=== PATIENT | male | born 1970 | race Two or more races ===

== ENCOUNTER 2024-10-25 23:44 | Emergency (ER) | payer MEDICAID, SELFPAY ==
[2024-10-25 23:45] VITALS: BMI 24.4
[2024-10-26 00:04] VITALS: BP 145/82; PULSE 73; RESP 20; TEMP 36.8; O2SAT 97
--- NOTE | 2024-10-26 00:10 | XR_ITS ---
Examination: Shoulder,left, 3 views Technique: Shoulder AP internal rotation, AP external rotation, Y view shoulder, 3 views Exam date and time :October 26, 2024 0014 hrs. Indications: Left shoulder pain beginning 3 days ago. Findings: No shoulder fracture or dislocation Moderate narrowing glenohumeral joint No calcific tendinitis Impression: Moderate narrowing glenohumeral joint
--- NOTE | 2024-10-26 00:11 | PD.EDRME ---
Rapid Medical Screening Exam E Arrival date/time: 10/25/24 23:44 54-year-old male presents emergency department complaining of left shoulder pain for 3 days. Patient denies any recent injury or fall. Chief Complaint: Extremity Problem,Nontraumatic Time Seen by Provider: 10/26/24 00:08 Vital signs: Vital Signs Temperature 98.2 F 10/26/24 00:04 Pulse Rate 73 10/26/24 00:04 Respiratory Rate 20 10/26/24 00:04 Blood Pressure 145/82 H 10/26/24 00:04 Pulse Oximetry (%) 97 10/26/24 00:04 Oxygen Delivery Method Room Air 10/26/24 00:04 Vital signs reviewed by provider: Yes
[2024-10-26] MEDS: CYCLObenzaPRINE 5 MG TABLET PO (00:28)
[2024-10-26] MEDS: KETOROLAC INJ 60 MG/2 ML VIAL 30 MG IM (00:30)
--- NOTE | 2024-10-26 01:14 | PD.EDEXREM ---
ED Extremity Problem RME/HPI General Chief complaint: Extremity Problem,Nontraumatic Stated complaint: LEFT SHOULDER PAIN X3 DAYS Time Seen by Provider: 10/26/24 00:08 Source: patient Arrival date/time: 10/25/24 23:44 54-year-old male presents emergency department complaining of left shoulder pain for 3 days. Patient denies any recent injury or fall. Patient denies any fever, chills, localized swelling, numbness, or any other associated symptom. Mode of arrival: ambulatory Limitations: no limitations RME / HPI RME / HPI Narrative: 10/25/24 23:44 54-year-old male presents emergency department complaining of left shoulder pain for 3 days. Patient denies any recent injury or fall. Related Data Previous Rx's ?Medication ?Instructions ?Recorded hydrocodone 5 mg-acetaminophen 325 1 tab PO Q6H PRN pain #10 tabs 01/10/20 mg tablet [id number] 3.5 1 drp ophthalmic (eye) QID #5 mL 05/06/24 mg/mL-10,000 unit/mL-0.1% eye drops cyclobenzaprine 10 mg tablet 10 mg PO TID PRN muscle spasm #10 10/26/24 tabs ibuprofen 600 mg tablet 600 mg PO Q8H PRN pain #20 tabs 10/26/24 Allergies Allergy/AdvReac Type Severity Reaction Status Date / Time No Known Allergies Allergy Verified 05/06/24 20:23 Review of Systems Review of Systems Systems Reviewed: All systems reviewed, normal except as documented Constitutional Constitutional: Reports system reviewed and no additional complaints, except as documented, Denies body ache(s), Denies chills and Denies fever(s) Eyes Eyes: Reports system reviewed and no additional complaints, except as documented and Denies change in vision ENT Ears, Nose, Mouth, and Throat: Reports system reviewed and no additional complaints, except as documented, Denies disequilibrium, Denies dizziness, Denies sore throat and Denies vertigo Cardiovascular Cardiovascular: Reports system reviewed and no additional complaints, except as documented, Denies chest pain and Denies dyspnea Respiratory Respiratory: Reports system reviewed and no additional complaints, except as documented, Denies chest congestion, Denies cough and Denies dyspnea Gastrointestinal Gastrointestinal: Reports system reviewed and no additional complaints, except as documented, Denies abdominal pain, Denies nausea and Denies vomiting Musculoskeletal Musculoskeletal: Reports system reviewed and no additional complaints, except as documented, Denies abnormal gait and Reports arthralgias Integumentary/Breasts Skin/Breast: Reports system reviewed and no additional complaints, except as documented, Denies erythema, Denies rash and Denies wounds Neurologic Neurologic: Reports system reviewed and no additional complaints, except as documented, Denies abnormal gait, Denies disequilibrium, Denies dizziness and Denies vertigo Past Medical History Past Medical History CARDIAC: Negative Cardiac Disorders or Congestive Heart Failure RESPIRATORY: Negative Chronic Obstructive Pulmonary Disease (COPD) or Asthma GENITOURINARY: Negative Renal Disease ENDOCRINE: Negative Diabetes Mellitus Type 1 or Diabetes Mellitus Type 2 HEMATOLOGIC: Negative Sickle Cell Disease Social History SMOKING STATUS: Never smoker ED Exam General Limitations: Present no limitations General appearance: Present alert and in no apparent distress Head Head exam: Present atraumatic Eye Eye exam: Present normal appearance, PERRL and EOMI ENT ENT exam: Present normal exam, normal oropharynx and mucous membranes moist Neck Neck exam: Present normal inspection, full ROM and trachea midline Chest Chest inspection: Present normal inspection and symmetric chest wall rise Respiratory Respiratory exam: Present normal lung sounds bilaterally Cardiovascular Cardiovascular exam: Present regular rate, normal rhythm and normal heart sounds Abdominal Exam Abdominal exam: Present soft and normal bowel sounds Extremities Exam Extremities exam: Present normal inspection and full ROM Expanded Upper Extremity Exam Shoulder exam: Present full ROM (Limited active range of motion left shoulder) and tenderness (Left shoulder); Absent swelling, ecchymosis or deformity Vascular exam: Normal capillary refill Back Exam Back exam: Present normal inspection and full ROM Neurological Exam Neurological exam: Present alert, oriented X3 and CN II-XII intact Psychiatric Psychiatric exam: Present normal affect and normal mood Skin Skin exam: Present warm, dry, intact and normal color Course Quality Measures none Orders Category Date Time Status XR shoulder LT min 2V Stat Exams 10/26/24 00:10 Taken CYCLObenzaPRINE [Flexeril] Med 10/26/24 00:10 Discontinued 5 mg PO X1 ONE HYDROcodone*/APAP 5/325 [[facility] 5/325] Med 10/26/24 01:45 Discontinued 1 tab PO X1 ONE Ketorolac Inj [Toradol Inj] Med 10/26/24 00:10 Discontinued 30 mg IM X1 ONE Vital Signs Vital signs: Vital Signs Temperature 98.2 F 10/26/24 00:04 Pulse Rate 73 10/26/24 00:04 Respiratory Rate 20 10/26/24 00:04 Blood Pressure 145/82 H 10/26/24 00:04 Pulse Oximetry (%) 97 10/26/24 00:04 Oxygen Delivery Method Room Air 10/26/24 00:04 97% room air within normal limits Extremity Problem MDM Narrative MDM Narrative:: 54-year-old male presents emergency department complaining of left shoulder pain for 3 days. Patient denies any recent injury or fall. Patient denies any fever, chills, localized swelling, numbness, or any other associated symptom. Left shoulder limited active range of motion. Left upper extremity neurovascularly intact with no loss of sensation. Patient reported significant improvement in pain after given pain medication. X-ray of left shoulder was unremarkable for any acute fracture or dislocation based on my interpretation. Patient stable for discharge instructed to follow-up with primary care provider and return to emergency department for any worsening symptoms or as needed. Patient data External records reviewed:: [facility] previous records Clinical information provided by:: patient Social determinants that could affect healthcare access:: none Patient has the following chronic illnesses:: None How is presenting disease/condition affected by chronic disease/condition?: no chronic disease Evaluation data The following diagnostics were reviewed and interpreted by me:: radiology exam(s) Lab and/or radiology exams considered but not ordered:: Ordered Interpretation Summary: Interpreted by me Medications / Prescriptions Medications or Prescriptions considered but not ordered:: Ordered Medication administrations:: Medication Administration History Discontinued Medications Hydrocodone Bitart/Acetaminophen (Hydrocodone/Apap 5/325 Tablet) 1 tab PO X1 ONE Stop: 10/26/24 01:46 Cyclobenzaprine HCl (Cyclobenzaprine 5 Mg Tablet) 5 mg PO X1 ONE Stop: 10/26/24 00:11 Last Admin: 10/26/24 00:28 Dose: 5 mg Documented By: KVNG Ketorolac Tromethamine (Ketorolac Inj 60 Mg/2 Ml Vial) 30 mg IM X1 ONE Stop: 10/26/24 00:11 Last Admin: 10/26/24 00:30 Dose: 30 mg Documented By: KVNG Given Consultations Consultation(s) initiated? (list below): No Diagnosis Extremity Problem Differential Diagnosis: gout, cellulitis and deep venous thrombosis of upper extremity Most likely diagnosis given after review of the tests above:: Shoulder pain Admission Indicated Admission indicated?: not indicated Admission Request Was there a request for admission?: No Disposition Plan Disposition Plan: Discharge Discharge Attestation Discharge Attestation: The patient and all family members were given an opportunity to ask questions and understood the discharge instructions. Discharge instructions specifically effects, indications for sooner follow up or return to the emergency department, and the expected course of current diagnosis. Patient condition: Stable Discharge Plan Plan Patient Disposition: HOME (Self Care) Disposition Comment: Stable Prescriptions/Referrals Prescriptions/Med Rec: New cyclobenzaprine 10 mg tablet 10 mg PO TID PRN (Reason: muscle spasm) Qty: 10 0RF ibuprofen 600 mg tablet 600 mg PO Q8H PRN (Reason: pain) Qty: 20 0RF No Action hydrocodone-acetaminophen 5-325 mg tablet 1 tab PO Q6H MDD 6 PRN (Reason: pain) Qty: 10 0RF neomycin-polymyxin B-dexameth 3.5mg/mL-10,000 unit/mL-0.1 % drops,suspension 1 drp ophthalmic (eye) QID Qty: 5 0RF Problem List Clinical Impression: Shoulder pain Patient/Caregiver Discharge Instructions Discharge Activity: activity as tolerated Education Materials: Treating Frozen Shoulder: Exercises, ED Arthralgia, ED Shoulder Pain, Uncertain Cause Additional Instructions: Take pain medication as prescribed. Follow-up with primary care provider in 2 to 3 days and request referral to physical therapy if symptoms persist. Return to emergency department for any worsening symptoms or as needed. Print Language: Faroese Stand Alone Forms: Josefina Award Info., Patient Portal Info Letter WILLIAMS/RICHARD Supervising Physician WILLIAMS/RICHARD Supervising Physician: Dr. Baeza
[2024-10-26] MEDS: HYDROcodone/APAP 5/325 TABLET 1 TAB PO (02:04)
[2024-10-26 02:08] VITALS: BP 136/84; RESP 18
== END 2024-10-26 02:08 | disposition home or self-care (01) ==
LOC: SERX 10-26 04:33
PROVIDERS: Emergency Provider Emergency Medicine; PCP Family Medicine
DX: M25.512 Pain in left shoulder (principal)
CPT/HCPCS: 73030; 96372; 99283; J1885; A9270